=== PATIENT | male | born 1985 | race Caucasian/White ===

== ENCOUNTER 2018-07-07 08:47 | Outpatient (CLI) | payer OTHER ==
--- NOTE | 2018-07-07 18:23 | Diagnostic Imaging Report ---
PARVEZ BRAR [facility] [id number] [facility] [address] [id number] Report Submission Date: Jul 07, 2018 9:40:43 AM CDT Patient Study Name: JEFFREY SILVER Date: Jul 07, 2018 9:21:47 AM CDT Modality Type: CT Gender: M Description: CT ABD PELVIS W/ CON : 89 Institution: [facility] Physician: PARVEZ BRAR CT abdomen and pelvis pelvis with contrast History: Epigastric pain for 5 weeks Technique: Helically acquired images were obtained from the hemidiaphragms to the pelvic floor following IV contrast. Findings: Lung bases are clear. The liver, spleen, adrenal glands, gallbladder, pancreas, kidneys and the abdominal aorta are unremarkable. The gastric wall does not appear thickened. The appendix is normal. Small and large bowel loops are normal in caliber. There is no free fluid in the abdomen or pelvis. The bladder, seminal vesicles and prostate gland are within normal limits. No osseous abnormalities are noted. Impression: No intra-abdominal or intrapelvic abnormality. Electronically signed on Jul 07, 2018 9:40:43 AM CDT by: Fadia PARR
== END 2018-07-07 09:05 ==
LOC: RAD 08:47
PROVIDERS: ATTEND Family Medicine
DX: R10.13 Epigastric pain (principal)
CPT/HCPCS: 74177; Q9967